=== PATIENT | male | born 1970 | race African-American/Black ===

== ENCOUNTER 2024-12-09 12:50 | Emergency (ER) | payer OTHER, SELFPAY ==
[2024-12-09 12:52] VITALS: BP 144/88
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
== END 2024-12-09 16:03 ==
LOC: EMR 12:50
PROVIDERS: EMERGENCY PHYSICIAN Student in an Organized Health Care Education/Training Program
DX: S30.851A Superficial foreign body of abdominal wall, initial encounter (principal); X58.XXXA Exposure to other specified factors, initial encounter; Z87.828 Personal history of other (healed) physical injury and trauma
CPT/HCPCS: 99283; 74018